=== PATIENT | male | born 1945 | race Hispanic/Latino ===

== ENCOUNTER 2016-09-17 07:06 | Day surgery (SDC) | payer MEDICARE ==
[2016-09-11 13:37] VITALS: BMI 31.4
[2016-09-17] MEDS ORDERED: Lidocaine 1% Inj (20ml) ONE (08:00)
[2016-09-17] MEDS ORDERED: Propofol 10 mg/ml Inj (20 ML) ONE (08:00)
[2016-09-17] MEDS ORDERED: Phenylephrine 10 mg/ml Inj ONE (08:01)
[2016-09-17] MEDS ORDERED: ePHEDrine 50 mg/ml Inj ONE (08:01)
[2016-09-17] MEDS ORDERED: Lactated Ringer's 1,000 ML IV SCH (08:50)
[2016-09-17 09:20] VITALS: BP 126/68; PULSE 56; RESP 20; TEMP 97.5; O2SAT 97
== END 2016-09-17 10:21 | disposition home or self-care (01) ==
LOC: ENDO 07:06
PROVIDERS: ATTEND Specialist
DX: Z12.11 Encounter for screening for malignant neoplasm of colon (principal); D12.4 Benign neoplasm of descending colon; K62.1 Rectal polyp; K57.30 Diverticulosis of large intestine without perforation or abscess without bleeding; K64.8 Other hemorrhoids; Z80.0 Family history of malignant neoplasm of digestive organs; I10 Essential (primary) hypertension; M19.90 Unspecified osteoarthritis, unspecified site; N40.0 Benign prostatic hyperplasia without lower urinary tract symptoms
CPT/HCPCS: 45380; 45385; 88305; J2370; J2704; J3010; J7040; J7120